=== PATIENT | female | born 1975 | race Two or more races ===

== ENCOUNTER → 2020-06-07 | Outpatient (CLI) | payer BC, OTHER ==
[~2020-06-07] MED LIST: GABA300C PO; HYDR200T72 PO; INSU100C SQ-INSULIN; INSU100I32 SQ-INSULIN; METF850T10 PO; NAPR220C2 PO; SULF500T36 PO
[2020-06-07 09:58] LABS: ALANINE AMINOTRANSFERASE 13 U/L (12-78); ALBUMIN 3.7 g/dL (3.4-5.0); ANION GAP 4 mmol/L (5-15); CALCIUM 11.8 mg/dL (8.5-10.1); CHLORIDE 110 mmol/L (98-107); CREATININE 0.98 mg/dL (0.55-1.02)
[2020-06-07 10:00] LABS: ALKALINE PHOSPHATASE 171 U/L (45-117); BILIRUBIN,TOTAL 0.5 mg/dL (0.2-1.0); TOTAL PROTEIN 7.8 g/dL (6.4-8.2)
[2020-06-07 10:05] LABS: MICROSCOPIC INDICATED
== END | disposition home or self-care (01) ==
LOC: STAR 08:07
PROVIDERS: ATTEND Surgery
DX: Z01.818 Encounter for other preprocedural examination (principal); Z20.822 Contact with and (suspected) exposure to COVID-19
CPT/HCPCS: 36415; 80053; 81001; 87086; 93005; U0003